=== PATIENT | male | born 1990 | race Caucasian/White ===

== ENCOUNTER 2024-07-23 17:42 | Emergency (ER) | payer MEDICAID ==
[~2024-07-23] VITALS: Ht 175.3 cm; Wt 58.0 kg
[2024-07-23] MEDS ORDERED: COUGH DM PO (18:58)
[2024-07-23] MEDS ORDERED: GUAIFENESIN/CODEINE 5 ML UDC PO ONE (20:15)
[2024-07-23] MEDS ORDERED: ALBUTEROL/IPRATROPIUM 3 ML NEB INH ONE (20:15)
[2024-07-23 20:53] LABS: CORONAVIRUS COVID-19 AG NEGATIVE (NEGATIVE)
[2024-07-23] MEDS ORDERED: BENZONATATE100 MG PO (21:51)
[2024-07-23] MEDS ORDERED: methylPREDNISolone 4 MG HOME.PACK PO ONE (22:00)
[2024-07-23] MEDS ORDERED: GUAIFENESIN/CODEINE 60 ML HOME.PACK PO ONE (22:00)
[2024-07-23] MEDS ORDERED: INHALER, ASSIST DEVICES 1 EACH SPACER MISC ONE (22:00)
[2024-07-23] MEDS ORDERED: ALBUTEROL SULFATE 8 GM HOME.PACK INH ONE (22:00)
[2024-07-23 22:37] VITALS: BP 134/81
== END 2024-07-23 22:41 | disposition home or self-care (01) ==
LOC: ED 17:42
PROVIDERS: Family Medicine
DX: J20.9 Acute bronchitis, unspecified (principal)
CPT/HCPCS: 36415; 71045; 94640; 99285-25

== ENCOUNTER 2024-08-01 20:14 | Emergency (ER) | payer MEDICAID ==
[~2024-08-01] VITALS: Ht 175.3 cm; Wt 58.0 kg
[~2024-08-01 20:14] MED LIST: BENZONATATE100 MG PO; COUGH DM PO
--- OUTSIDE RECORDS SUMMARY | 2024-08-01 20:21 | XMS ---
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 Annabel has no Care Guidelines for this patient. [place] V[facility] (12 MO.) [facility] T[facility] 2 NOTE: Visits indicate total known visits. ED/C VISIT TRACKING (12 MO.) [facility]01[facility]2024 20:[facility] COMPLAINT: - COLD SYMPTOMS 07/23/2024 17:43 [facility] OR TYPE: Emergency COMPLAINT: - COUGH DIAGNOSES: - Acute bronchitis, unspecified - Acute pharyngitis, unspecified INPATIENT VISIT TRACKING (12 MO.) No inpatient visits to display in this time frame [email or web address]
[2024-08-01] MEDS ORDERED: CEFTRIAXONE SODIUM 2 GM in SODIUM CHLORIDE 0.9% 100 ML IV ONE (20:45)
[2024-08-01] MEDS ORDERED: SODIUM CHLORIDE 0.9% 1,000 ML IV ONE (20:45)
[2024-08-01 21:03] LABS: BASOPHILS 0.4 % (0-2); EOSINOPHILS 1.9 % (0-6); HEMATOCRIT 44.8 % (35.0-50.0); HEMOGLOBIN 15.4 g/dL (12.0-18.0); LYMPHOCYTES 13.7 % (24-44); MCH 29.4 (27-36); MCHC 34.4 g/dl (30-36); MCV 85.6 fl (81-99); MONOCYTES 7.7 % (0-12); NEUTROPHILS 76.3 % (39-80); PLATELET COUNT 261 K/uL (140-440); RBC 5.23 M/ul (4.3-5.7); RDW 14.1 (10.5-15.0)
[2024-08-01 21:15] LABS: BILIRUBIN, URINE NEGATIVE (negative); BLOOD/HGB, URINE NEGATIVE (Negative); KETONE, URINE NEGATIVE (Negative); LEUK ESTERASE, URINE NEGATIVE (negative); NITRITE, URINE NEGATIVE (negative)
[2024-08-01 21:17] LABS: ALBUMIN 3.9 g/dL (3.4-5.0); ALBUMIN/GLOBULIN RATIO 0.93 (1.1-2.4); ANION GAP 13.5 (7-21); BILIRUBIN, TOTAL 0.4 mg/dL (0.2-1.0); BUN/CREATININE RATIO 7.21 (6.0-28.6); CREATININE, SERUM 0.97 mg/dL (0.70-1.30); MAGNESIUM 2.2 mg/dL (1.8-2.4); POTASSIUM 3.5 mmol/L (3.5-5.1); PROTEIN, TOTAL 8.1 g/dL (6.4-8.2)
[2024-08-01 21:23] LABS: LACTIC ACID, BLOOD 1.2 mmol/L (0.4-2.0)
[2024-08-01] MEDS ORDERED: GUAIFEN-CODEINE10 ML PO (21:45)
[2024-08-01] MEDS ORDERED: LACTATED RINGER'S 1,000 ML IV ONE (21:45)
[2024-08-01] MEDS ORDERED: levoFLOXacin 500 MG TAB PO ONE (21:45)
[2024-08-01] MEDS ORDERED: LEVOFLOXACIN500 MG PO (21:45)
[2024-08-01 23:02] VITALS: BP 131/74
--- NOTE | 2024-08-02 08:16 | EKG ---
[facility] [address] [facility] [address] [place] [address] Signed Sinus tachycardia Right atrial enlargement Borderline ECG No previous ECGs available Confirmed by John Paul Catherine DO ([id number]) on 08/02/2024 8:16:10 AM Electronically Signed By: JOHN PAUL CATHERINE DO 08/02/24 0816 PATIENT NAME: GIOVANNICRIS COOK Electrocardiogram DATE OF : 89 PHYSICIAN: JOHN PAUL CATHERINE DO REPORT #: [id number] REPORT IS CONFIDENTIAL AND NOT TO BE RELEASED WITHOUT AUTHORIZATION
== END 2024-08-01 23:00 | disposition home or self-care (01) ==
LOC: ED 20:14
PROVIDERS: Family Medicine
DX: J06.9 Acute upper respiratory infection, unspecified (principal)
CPT/HCPCS: 36415; 71045; 80053; 81003; 83605; 83735; 85025; 93005; 93010; 96365; 96366; 99284-25; J0696; J7030; J7121; U0002

== ENCOUNTER 2024-08-09 20:54 | Emergency (ER) | payer OTHER ==
[~2024-08-09] VITALS: Ht 175.3 cm; Wt 59.0 kg
[~2024-08-09 20:54] MED LIST changes: +GUAIFEN-CODEINE10 ML PO; +LEVOFLOXACIN500 MG PO
--- OUTSIDE RECORDS SUMMARY | 2024-08-09 21:00 | XMS ---
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 ESandra VISIT COUNT (12 MO.) 3 [facility] TOTAL 3 NOTE: Visits indicate total known visits. ED/C VISIT TRACKING (12 MO.) 08/09/2024 20:54 [facility] OR TYPE: Emergency COMPLAINT: - NECK/ARM PAIN 08/01/2024 20:15 [facility] OR TYPE: Emergency COMPLAINT: - COLD SYMPTOMS DIAGNOSES: - Acute upper respiratory infection, unspecified - Fever, unspecified 07/23/2024 17:43 [facility] [place] TYPE: Emergency COMPLAINT: - COUGH DIAGNOSES: - Acute bronchitis, unspecified - Acute pharyngitis, unspecified INPATIENT VISIT TRACKING (12 MO.) No inpatient visits to display in this time frame [email or web address]
[2024-08-09] MEDS ORDERED: KETOROLAC TROMETHAMINE 60 MG/2 ML VIAL IM ONE (21:45)
[2024-08-09] MEDS ORDERED: CYCLOBENZAPRINE HCL 10 MG TAB PO ONE (21:45)
[2024-08-09] MEDS ORDERED: CYCLOBENZAPRINE10 MG PO (22:47)
[2024-08-09 22:55] VITALS: BP 113/67
== END 2024-08-09 22:55 | disposition home or self-care (01) ==
LOC: ED 20:54
DX: M43.6 Torticollis (principal)
CPT/HCPCS: 96372; 99283; J1885

== ENCOUNTER 2025-03-26 20:13 | Emergency (ER) | payer OTHER ==
[~2025-03-26] VITALS: Ht 175.3 cm; Wt 55.7 kg
[~2025-03-26 20:13] MED LIST changes: +CYCLOBENZAPRINE10 MG PO
--- OUTSIDE RECORDS SUMMARY | 2025-03-26 20:20 | XMS ---
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 - 2 Visits in 30 Days CARE PROVIDERS -, [facility]ist: [employer] Current [place] PHONE: [phone] DAVID [facility] Current PHONE: [phone] Annabel has no Care Guidelines for this patient. [place] VISIT COUNT (12 MO.) [address] [place] [address] TOTAL 5 NOTE: Visits indicate total known visits. ED/UCC VISIT TRACKING (12 MO.) 03/26/2025 20:13 [facility] OR TYPE: Emergency COMPLAINT: - DENTAL PROBLEM 03/25/2025 15:24 [facility] OR TYPE: Emergency COMPLAINT: - DENTAL PROBLEM 08/09/2024 20:54 [facility] OR TYPE: Emergency COMPLAINT: - NECK/ARM PAIN DIAGNOSES: - Cervicalgia - Torticollis 08/01/2024 20:15 [facility] OR TYPE: Emergency COMPLAINT: - COLD SYMPTOMS DIAGNOSES: - Acute upper respiratory infection, unspecified - Fever, unspecified 07/23/2024 17:43 [facility] [place] TYPE: Emergency COMPLAINT: - COUGH DIAGNOSES: - Acute bronchitis, unspecified - Acute pharyngitis, unspecified INPATIENT VISIT TRACKING (12 MO.) No inpatient visits to display in this time frame [id number]
[2025-03-26] MEDS ORDERED: CEPHALEXIN500 M1 PO (21:33)
[2025-03-26] MEDS ORDERED: TRAMADOL HCL50 MG PO (21:34)
[2025-03-26] MEDS ORDERED: TRAMADOL HCL 50 MG HOME.PACK PO ONE (21:45)
[2025-03-26] MEDS ORDERED: CEPHALEXIN MONOHYDRATE 500 MG HOME.PACK PO ONE (21:45)
== END 2025-03-26 22:39 | disposition home or self-care (01) ==
LOC: ED 20:13
DX: K04.7 Periapical abscess without sinus (principal)
CPT/HCPCS: 99282; A9270